=== PATIENT | female | born 2000 | race Caucasian/White ===

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

== ENCOUNTER → 2023-08-31 | Emergency (ER) | payer OTHER ==
[~2023-08-31] MED LIST: KETOROLAC 30 MG/ML INJ ONE; predniSONE 20 MG TAB ONE
[2023-08-31 16:51] LABS: Specific Gravity 1.023 (1.005-1.030); Urine Bacteria None Seen /HPF (<20); Urine Bilirubin NEGATIVE (Negative); Urine Blood Negative (Negative); Urine Clarity Turbid (Clear); Urine Color Light-Yellow (Yellow); Urine Culture Reflex Order NOT NEEDED; Urine Glucose NEGATIVE (Negative); Urine Ketones NEGATIVE (Negative); Urine Microscopic Reflex YN ORDER UMIC; Urine Mucus Slight /HPF (None Seen); Urine Nitrite NEGATIVE (Negative); Urine Protein NEGATIVE (Negative); Urine RBC <5 /HPF (None Seen); Urine Urobilinogen Normal (Normal); Urine WBC <5 /HPF (<5)
--- NOTE | 2023-08-31 17:17 | ER ---
Nurse's Notes [facility] Name: Sharda Snow Age: 23 yrs Sex: Female : 2000 Arrival Date: 08/31/2023 Time: 14:27 Bed 9 Private MD: Diagnosis: Low back pain Presentation: 08/30 14:40 Chief complaint: Patient states: Mid and lower back pain for 1 week. No trauma or ll1 falls. 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 Pain just not getting better. Coronavirus screen: Client denies travel out of the [place] in the last 14 days. At this time, the client does not indicate any symptoms associated with coronavirus-19. Ebola Screen: Patient denies travel to an Ebola-affected area in the 21 days before illness onset. Initial Sepsis Screen: Does the patient meet any 2 criteria? No. Patient's initial sepsis screen is negative. Does the patient have a suspected source of infection? No. Patient's initial sepsis screen is negative. Risk Assessment: Do you want to hurt yourself or someone else? Patient reports no desire to harm self or others. Onset of symptoms was August 24, 2023. 14:40 Method Of Arrival: Ambulatory ll1 14:40 Acuity: LETTY 4 ll1 Triage Assessment: 14:42 General: Appears uncomfortable, Behavior is calm, cooperative, appropriate for age. ll1 Pain: Complains of pain in low back Quality of pain is described as aching. Neuro: No deficits noted. Cardiovascular: No deficits noted. Musculoskeletal: Circulation, motion, and sensation intact. Capillary refill < 3 seconds, Reports pain in low back. 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 - Social history:: Smoking status: Patient reports the use of cigarette tobacco products, 1 cig./day, Reported history of juuling and/or vaping. Screenin:08 [facility] ED Fall Risk Assessment (Adult) History of falling in the last 3 months, tl4 including since admission No falls in past 3 months (0 pts) Confusion or Disorientation No (0 pts) Intoxicated or Sedated No (0 pts) Impaired Gait No (0 pts) Mobility Assist Device Used No (0 pt) Altered Elimination No (0 pt) Score/Fall Risk Level 0 - 2 = Low Risk Oriented to surroundings, Maintained a safe environment, Educated pt \T\ family on fall prevention, incl call for assistance when getting out of bed, Assessed \T\ reinforced patient's understanding of fall precautions, Hourly rounding (assess needs \T\ fall precautionary measures) done, Used ambulatory aids as needed (educated on \T\ assisted with). Abuse screen: Denies threats or abuse. Denies injuries from another. Nutritional screening: No deficits noted. Tuberculosis screening: No symptoms or risk factors identified. Assessment: 16:06 General: Appears uncomfortable, Behavior is calm, cooperative. Pain: Complains of pain tl4 in back. Neuro: Level of Consciousness is awake, alert, obeys commands, Oriented to person, place, time, situation, Speech is normal, Facial symmetry appears normal, Reports headache. Cardiovascular: No deficits noted. Capillary refill < 3 seconds Patient's skin is warm and dry. Respiratory: No deficits noted. Airway is patent Respiratory effort is even, unlabored, Respiratory pattern is regular, Breath sounds are clear bilaterally. GI: No deficits noted. No signs and/or symptoms were reported involving the gastrointestinal system. : No deficits noted. No signs and/or symptoms were reported regarding the genitourinary system. EENT: No deficits noted. No signs and/or symptoms were reported regarding the EENT system. Derm: No deficits noted. No signs and/or symptoms reported regarding the dermatologic system. Musculoskeletal: Reports pain in back. Vital Signs: 14:40 BP 124 / 45; Pulse 91; Resp 18; Temp 98.1; Pulse Ox 98% ; Weight 149.69 kg; Height 5 ll1 ft. 6 in. ; Pain 5/10; 16:18 BP 119 / 52; Pulse 88; Resp 18; Pulse Ox 98% ; Pain 5/10; tl4 14:40 Body Mass Index 53.26 (149.69 kg, 167.64 cm) ll1 14:40 Pain Scale: Adult ll1 16:18 Pain Scale: Adult tl4 ED Course: 14:30 Patient arrived in ED. im 14:30 Nahum Melendez MD is Attending Physician. rt 14:42 Triage completed. ll1 14:42 Arm band placed on. ll1 15:44 Adin Kumar, RN is Primary Nurse. tl4 16:06 PREGU Sent. tl4 16:06 Urinalysis w/ reflexes Sent. tl4 16:08 Patient has correct armband on for positive identification. Placed in gown. Bed in low tl4 position. Call light in reach. Side rails up X 1. Provided Education on: ed process. Client placed on continuous cardiac and pulse oximetry monitoring. NIBP monitoring applied. Door closed. Noise minimized. Lights dimmed. Moved to private room. Warm blanket given. 16:08 No provider procedures requiring assistance completed. Patient did not have IV access tl4 during this emergency room visit. Administered Medications: 15:56 Drug: Ketorolac IM 15 mg IM once Route: IM; Site: left ventrogluteal; tl4 16:19 Follow up: Response: No adverse reaction; Pain is decreased tl4 15:56 Drug: predniSONE PO 40 mg PO once Route: PO; tl4 16:18 Follow up: Response: No adverse reaction tl4 Medication: 16:09 VIS not applicable for this client. tl4 Outcome: 17:17 Discharge ordered by MD. rt 17:55 Discharged to home ambulatory, hb 17:55 Condition: stable 17:55 Discharge instructions given to patient, Instructed on discharge instructions, follow up and referral plans. medication usage, Demonstrated understanding of instructions, follow-up care, medications, Prescriptions given X 2, 17:55 Patient left the ED. 5 Signatures: Kathy Carranza RN RN Jaylin De Leon RN RN 1 Nahum Melendez MD MD rt Mitzy Serrato Moriah 5 Adin Kumar, RN RN tl4 Corrections: (The following items were deleted from the chart) 14:44 14:40 Pulse 91bpm; Resp 18bpm; Pulse Ox 98%; Temp 98.1F; ll1 ll1 14:45 14:40 Social history: Smoking status: Patient denies any tobacco usage or history of. ll1 ll1 16:18 16:16 Home Meds: diclofenac Oral; tl4 tl4 16:18 16:16 Home Meds: embril; tl4 tl4 16:18 16:17 Home Meds: diclofenac Oral; tl4 tl4 16:18 16:17 Home Meds: embril; tl4 tl4
--- NOTE | 2023-08-31 17:17 | EDPHYS ---
Physician Documentation [facility] Name: Sharda Snow Age: 23 yrs Sex: Female : 2000 Arrival Date: 08/31/2023 Time: 14:27 Bed 9 Private MD: ED Physician Nahum Melendez HPI: 08/30 14:56 This 23 yrs old Female presents to ER via Ambulatory with complaints of Back Pain. rt 14:56 Patient with history of rheumatoid arthritis presents to the ED with 1 week of lower rt back pain. Patient states that she was heavy objects at her work but denies any discrete injury. States that she has had a history of kidney infections in the past, she denies other acute complaints at this time, symptoms are mild in severity, aching nature, nonradiating, no other aggravating or alleviating factors.. 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 - Social history:: Smoking status: Patient reports the use of cigarette tobacco products, 1 cig./day, Reported history of juuling and/or vaping. ROS: 14:56 Constitutional: Negative for fever, chills, and weight loss, Cardiovascular: Negative rt for chest pain, palpitations, and edema, Respiratory: Negative for shortness of breath, cough, wheezing, and pleuritic chest pain, Abdomen/GI: Negative for abdominal pain, nausea, vomiting, diarrhea, and constipation, MS/Extremity: Negative for injury and deformity, Skin: Negative for injury, rash, and discoloration, Neuro: Negative for headache, weakness, numbness, tingling, and seizure, 14:56 Back: Positive for pain at rest, pain with movement, Exam: 14:56 Constitutional: This is a well developed, well nourished patient who is awake, alert, rt and in no acute distress. Head/Face: Normocephalic, atraumatic. Chest/axilla: Normal chest wall appearance and motion. Nontender with no deformity. No lesions are appreciated. Cardiovascular: Regular rate and rhythm with a normal S1 and S2. No gallops, murmurs, or rubs. Normal PMI, no JVD. No pulse deficits. Respiratory: Lungs have equal breath sounds bilaterally, clear to auscultation and percussion. No rales, rhonchi or wheezes noted. No increased work of breathing, no retractions or nasal flaring. Abdomen/GI: Soft, non-tender, with normal bowel sounds. No distension or tympany. No guarding or rebound. No evidence of tenderness throughout. Skin: Warm, dry with normal turgor. Normal color with no rashes, no lesions, and no evidence of cellulitis. MS/ Extremity: Pulses equal, no cyanosis. Neurovascular intact. Full, normal range of motion. Neuro: Awake and alert, GCS 15, oriented to person, place, time, and situation. Cranial nerves II-XII grossly intact. Motor strength 5/5 in all extremities. Sensory grossly intact. Cerebellar exam normal. Normal gait. 14:56 Back: Tenderness to the lower lumbar paraspinal areas, no midline tenderness, no costovertebral angle tenderness, Vital Signs: 14:40 BP 124 / 45; Pulse 91; Resp 18; Temp 98.1; Pulse Ox 98% ; Weight 149.69 kg; Height 5 ll1 ft. 6 in. ; Pain 5/10; 16:18 BP 119 / 52; Pulse 88; Resp 18; Pulse Ox 98% ; Pain 5/10; tl4 14:40 Body Mass Index 53.26 (149.69 kg, 167.64 cm) ll1 14:40 Pain Scale: Adult ll1 16:18 Pain Scale: Adult tl4 MDM: 14:38 Patient medically screened. rt 17:21 Differential diagnosis: Mechanical back pain, rheumatoid arthritis, kidney stone, rt pyelonephritis. Data reviewed: vital signs, nurses notes, lab test result(s). Test considered but Not performed: CT: Low suspicion for kidney stone, pyelonephritis, spinal fracture, CT scan not indicated. Care significantly affected by the following chronic conditions: Rheumatoid arthritis. Counseling: I had a detailed discussion with the patient and/or guardian regarding the historical points, exam findings, and any diagnostic results supporting the discharge/admit diagnosis, lab results, the need for outpatient follow up, to return to the emergency department if symptoms worsen or persist or if there are any questions or concerns that arise at home. Response to treatment: the patient's symptoms have markedly improved after treatment. 08/30 14:47 Order name: Urinalysis w/ reflexes; Complete Time: 17:10 ll1 Administered Medications: 15:56 Drug: Ketorolac IM 15 mg IM once Route: IM; Site: left ventrogluteal; tl4 16:19 Follow up: Response: No adverse reaction; Pain is decreased tl4 15:56 Drug: predniSONE PO 40 mg PO once Route: PO; tl4 16:18 Follow up: Response: No adverse reaction tl4 Disposition Summary: 08/31/23 17:17 Discharge Ordered Notes: Location: Home rt Problem: new rt Symptoms: have improved rt Condition: Stable rt Diagnosis - Low back pain rt Followup: rt - With: Private Physician - When: 2 - 3 days - Reason: Discharge Instructions: - Discharge Summary Sheet rt - Acute Back Pain, Adult rt Forms: - Work release form hb - Medication Reconciliation Form rt - Thank You Letter rt - Antibiotic Education rt - Prescription Opioid Use rt - Patient Portal Instructions rt - Leadership Thank You Letter rt Prescriptions: - Prednisone 20 mg Oral tablet - take 2 tablets ORAL route once daily for 4 days; 8 tablet; Refills: 0, Product rt Selection Permitted - Cyclobenzaprine 5 mg Oral Tablet - take 1 tablet ORAL route 3 times per day As needed; 15 tablet; Refills: 0, rt Product Selection Permitted Signatures: Dispatcher [employer] Jaylin Mcdonald RN RN ll1 Nahum Melendez MD MD rt Adin Kumar RN RN tl4 Corrections: (The following items were deleted from the chart) 14:45 14:40 Social history: Smoking status: Patient denies any tobacco usage or history of. ll1 ll1 16:18 16:16 Home Meds: diclofenac Oral; tl4 tl4 16:18 16:16 Home Meds: embril; tl4 tl4 16:18 16:17 Home Meds: diclofenac Oral; tl4 tl4 16:18 16:17 Home Meds: embril; tl4 tl4
[2023-08-31 18:59] VITALS: BP 119/52; TEMP 98.1; O2SAT 98
== END ==
LOC: ER 14:27
DX: M54.50 Low back pain, unspecified (principal); Z72.0 Tobacco use
CPT/HCPCS: 81001; 96372; 99284; J7512